=== PATIENT | male | born 1955 | race Caucasian/White ===

== ENCOUNTER 2019-07-17 00:52 | Emergency (ER) | payer OTHER ==
[2019-07-17 01:02] VITALS: BP 156/96; PULSE 69; TEMP 97.9; BMI 26.6
--- NOTE | 2019-07-17 01:04 | PDOC ---
History of Present Illness - General Chief Complaint: Respiratory Stated Complaint: COUGH Time Seen by Provider: 07/17/19 01:01 History Source: Patient Exam Limitations: No Limitations - History of Present Illness Initial Comments: 07/17/19 01:20 64y M no significant pmhx presenst with cough. Patient endorses cough for the past week qassociated with nasal congestion. The cough is nonproductive, there is no associated hemoptysis, leg swelling, calf pain, chest pain, shortness of breath, dyspnea on exertion, fevers, chills, Abdominal pain, nausea, vomiting, diarrhea, back pain, Body aches, sore throat. Patient notes that the cough is much worse at night and makes it difficult for him to sleep. Patient denies any smoking or recreational drug use. No recent surguries or travel. ROS: Constitutional - no reported Fever, Chills, HEENT: +nasal congestion no reported vision changes, sore throat Respiratory: +cough, no reported sob, hemoptysis Cardiac: no reported chest pain, palpitations, light headedness, leg swelling Abd/GI: no reported abd pain, nausea, vomiting, blood per rectum, melena, diarrhea : no reported dysuria, frequency, discharge Musculskelatal - no reported back pain, joint swelling skin - no reported bruising, erythema, rash neurological: no reported headache, numbness, focal weakness, tingling, ataxia, hematologic: no reported easy bruising, easy bleeding Exam: GENERAL: The patient is awake, alert, and fully oriented, Nontoxic - in no acute distress. HEAD: Normocephalic, atraumatic. EYES: extraocular movements intact, sclera anicteric, conjunctiva clear. ENT: Normal voice, Moist mucous membranes. NECK: Normal range of motion, supple LUNGS: Breath sounds equal, clear to auscultation bilaterally. No wheezes, no rhonchi, no rales. HEART: Regular rate and rhythm, normal S1 and S2 without murmur, rub or gallop. ABDOMEN: Soft, nontender, No guarding, no rebound. No CVA tenderness EXTREMITIES: Normal range of motion, no edema. Negative Homans, no calf tenderness. NEUROLOGICAL: No facial assymetry, Normal speech, PSYCH: Normal mood, normal affect. SKIN: Warm, Dry, normal turgor, Suspect viral URI, no clinical signs or symptoms suggestive of pneumonia. Due to the persistent cough And duration of cough will obtain chest x-ray to rule out pneumonia. We will give the patient a DuoNeb to see if that helps with his bronchospasms. Will give patient prescription for Robitussin AC. Past History - Past Medical History Allergies/Adverse Reactions: Allergies Allergy/AdvReac Type Severity Reaction Status Date / Time No Known Allergies Allergy Unverified 07/17/19 00:53 Home Medications: Ambulatory Orders Albuterol Sulfate Inhaler - [Ventolin HFA Inhaler -] 1 - 2 inh PO Q4H PRN #1 inhaler 07/17/19 Guaifenesin AC [Robitussin AC] 10 ml PO Q6H PRN #1 bot MDD 40ml 07/17/19 Simvastatin 20 mg PO DAILY 07/17/19 traZODone HCL [Trazodone HCl] 50 mg PO DAILY 07/17/19 COPD: No Hypercholesterolemia: Yes Psychiatric Problems: Yes - Psycho Social/Smoking Cessation Hx Smoking History: Never smoked *Physical Exam - Vital Signs Last Vital Signs Temp Pulse Resp BP Pulse Ox 97.9 F 69 20 156/96 95 07/17/19 00:52 07/17/19 00:52 07/17/19 00:52 07/17/19 00:52 07/17/19 00:52 Medical Decision Making - Medical Decision Making 07/17/19 01:53 Chest x-ray is negative for any infiltrate. Patient is feeling improved will discharge patient with albuterol inhaler as well as Robitussin-AC for symptomatic relief of his cough. I discussed the physical exam findings, ancillary test results and final diagnoses with the patient. I answered all of the patient's questions. The patient was satisfied with the care received and felt comfortable with the discharge plan and treatment plan. The patient will call their primary care physician within 24 hours to arrange follow-up and will return to the Emergency Department with any new, persistent or worsening symptoms. Discharge - Discharge Information Problems reviewed: Yes Clinical Impression/Diagnosis: Upper respiratory infection Qualifiers: URI type: acute nasopharyngitis (common cold) Qualified Code(s): J00 - Acute nasopharyngitis [common cold] Condition: Stable Disposition: HOME - Admission No - Additional Discharge Information Prescriptions: Albuterol Sulfate Inhaler - [Ventolin HFA Inhaler -] 1 - 2 inh PO Q4H PRN #1 inhaler PRN Reason: Cough Guaifenesin AC [Robitussin AC] 10 ml PO Q6H PRN #1 bot MDD 40ml PRN Reason: Cough - Follow up/Referral Referrals: Sonido Johnston MD [Staff Physician] - - Patient Discharge Instructions Patient Printed Discharge Instructions: DI for Viral Upper Respiratory Infection -- Adult Additional Instructions: Return to the emergency department immediately with ANY new, persistent or worsening symptoms Including fevers, shortness of breath, chest pain or any other concerns. Take the cough medicine as prescribed (Do not drive if you are taking this medicine). You MUST call and follow up with your doctor in 4-5 days for further evaluation of your symptoms. Results were discussed with you. Please make sure your doctor reviews the results of your emergency evaluation. Your Emergency Department visit is not complete without a follow up with your doctor. If you had any xrays during your visit, it was read preliminarily by myself, a Radiologist will review it and if there are any additional findings we will call you. Print Language: LATVIAN - Post Discharge Activity
[2019-07-17] MEDS ORDERED: ALBUTEROL SO4 2.5/IPRATROPIUM 0.5 INH SOL 3 ML VIAL.NEB. NEB ONE ×2 (01:15→01:20)
[2019-07-17] MEDS ORDERED: guaiFENesin/CODEINE 10 ML UNIT-DOSE CUPS PO ONE (01:42)
[2019-07-17] MEDS ORDERED: guaiFENesin/CODEINE 10 ML UNIT-DOSE CUPS ONE (01:44)
== END 2019-07-17 01:59 | disposition home or self-care (01) ==
LOC: FER 00:52
PROC: 3E0F7GC Introduction of Other Therapeutic Substance into Respiratory Tract, Via Natural or Artificial Opening (ICD-10-PCS; principal; 2019-07-17)
DX: J00 Acute nasopharyngitis [common cold] (principal); E78.00 Pure hypercholesterolemia, unspecified; F99 Mental disorder, not otherwise specified
CPT/HCPCS: 71046-TC-FY; 99281-25